=== PATIENT | male | born 1995 | race African-American/Black ===

== ENCOUNTER 2021-03-05 09:58 | Inpatient (IN) | payer OTHER ==
[~2021-03-05] VITALS: Ht 172.7 cm; Wt 69.0 kg
[2021-03-05] MEDS ORDERED: SODIUM CHLORIDE 0.9% 1,000 ML IV ONE ×2 (10:15)
[2021-03-05] MEDS ORDERED: cefTRIAXone 1GM/50ML D5W 50 ML IV ONE (10:15)
[2021-03-05] MEDS ORDERED: MORPHINE SULFATE 4 MG/ML SYR/VIAL IV ONE (10:15)
[2021-03-05] MEDS ORDERED: ACETAMINOPHEN 325 MG TAB PO ONE (10:15)
[2021-03-05 10:30] LABS: Basophils # (auto) 0 10 ^3/uL (0-0.2); Basophils % (auto) 0.6 % (0.0-2.0); Eosinophils # (auto) 0 10 ^3/uL (0-0.8); Hematocrit 44.5 % (41.0-53.0); Hemoglobin 15.4 g/dL (13.5-17.5); Lymphocytes # (auto) 1.6 10 ^3/uL (0.4-5.4); Lymphocytes % (auto) 21.8 % (10.0-50.0); Mean Corpuscular Hemoglobin 32.6 pg (28.0-32.0); Mean Corpuscular Hgb Conc. 34.7 g/dL (32.0-36.0); Mean Corpuscular Volume 93.8 fL (80.0-100.0); Monocytes # (auto) 0.8 10 ^3/uL (0-1.3); Monocytes % (auto) 10.9 % (0.0-12.0); Neutrophils # (auto) 4.8 10 ^3/uL (1.6-8.6); Neutrophils % (auto) 66.7 % (37.0-80.0); Nucleated Red Blood Cells % 0.1 %; Platelet Count (auto) 150 10^3/uL (140-450); Red Blood Cells 4.74 10^6/uL (4.5-5.90); Red Cell Distribution Width 13.9 % (11.8-14.3); White Blood Cell 7.2 10^3/uL (4.4-10.8)
[2021-03-05] MEDS: ONDANSETRON HCL 4 MG/2 ML VIAL IV ONE ×2 (10:31→17:07)
[2021-03-05 10:48] LABS: Albumin 4.3 g/dL (3.4-5.0); Calcium 9.4 mg/dL (8.5-10.1); Potassium 3.5 mmol/L (3.5-5.1)
[2021-03-05 10:51] LABS: BUN/Creatinine Ratio 9.7; Bilirubin, Total 0.8 mg/dL (0.2-1.0); Total Protein 8.8 g/dL (6.4-8.2)
[2021-03-05 10:56] LABS: Lactic Acid w/Reflex 2.1 mmol/L (0.4-2.0)
[2021-03-05 11:33] LABS: Urine Bacteria NONE SEEN /hpf (None Seen); Urine Blood TRACE /uL (Negative); Urine Specific Gravity 1.024 (1.001-1.035); Urine WBC 1 /hpf (0 - 3)
[2021-03-05 12:09] LABS: Alcohol, Urine < 3.0 mg/dL (0-10); Amphetamine Screen, Urine NEGATIVE (NEGATIVE); Barbiturate Scree,Urine NEGATIVE (NEGATIVE); Benzodiazephine Screen, Urine NEGATIVE (NEGATIVE); Cannabinoid Screen, Urine POSITIVE (NEGATIVE); Cocaine Screen, Urine NEGATIVE (NEGATIVE)
[2021-03-05] MEDS ORDERED: metroNIDAZOLE 500MG/100ML 100 ML IV ONE (12:15)
[2021-03-05 12:16] LABS: Opiate Scree,Urine NEGATIVE (NEGATIVE); Phencyclidine Screen, Urine NEGATIVE (NEGATIVE)
[2021-03-05] MEDS ORDERED: HYDROcodone-ACET 5/325MG TAB PO PRN (12:45)
[2021-03-05] MEDS ORDERED: ACETAMINOPHEN 500 MG TAB PO PRN (12:45)
[2021-03-05] MEDS: metroNIDAZOLE 500MG/100ML 100 ML IV SCH ×2 (12:52→22:28)
[2021-03-05] MEDS: D5W/SOD CHLO 0.9% 1,000 ML IV SCH (12:56)
[2021-03-05] MEDS: ONDANSETRON HCL 4 MG/2 ML VIAL IV PRN (13:40)
[2021-03-05] MEDS: ACETAMINOPHEN 325 MG TAB PO PRN (13:50)
[2021-03-05] MEDS ORDERED: IBUPROFEN 400 MG TAB PO ONE (17:00)
[2021-03-05 18:40] VITALS: BP 134/72
[2021-03-05 22:28] VITALS: BP 121/70
[2021-03-06] MEDS: ONDANSETRON HCL 4 MG/2 ML VIAL IV PRN ×3 (00:37→18:26)
[2021-03-06] MEDS: MORPHINE SULF INJ 2 MG/ML SYRINGE 1ML IV PRN ×2 (03:59→20:34)
[2021-03-06] MEDS: ACETAMINOPHEN 325 MG TAB PO PRN ×3 (04:10→22:25)
[2021-03-06] MEDS: D5W/SOD CHLO 0.9% 1,000 ML IV SCH ×3 (04:13→12:34)
[2021-03-06 05:00] VITALS: BP 111/63
[2021-03-06] MEDS: metroNIDAZOLE 500MG/100ML 100 ML IV SCH ×3 (05:49→21:35)
[2021-03-06] MEDS: cefTRIAXone 1GM/50ML D5W 50 ML IV SCH (08:19)
[2021-03-06 08:57] VITALS: BP 121/73
[2021-03-06] MEDS: ESOMEPRAZOLE 40 MG/5ml VIAL INJ IV SCH (09:41)
[2021-03-06 12:41] VITALS: BP 119/74
[2021-03-06] MEDS ORDERED: FOLIC ACID 1 MG in D5W 5% 50 ML INJ ONE (13:00)
[2021-03-06] MEDS ORDERED: THIAMINE 100mg/ml INJ (200mg/2ml VIAL) IV ONE (13:00)
[2021-03-06] MEDS ORDERED: chlordiazePOXIDE HCL 5 MG CAP PO PRN (13:00)
[2021-03-06 16:37] VITALS: BP 137/89
[2021-03-06 22:00] VITALS: BP 130/74
[2021-03-07] MEDS: D5W/SOD CHLO 0.9% 1,000 ML IV SCH ×3 (00:34→07:36)
[2021-03-07] MEDS: ONDANSETRON HCL 4 MG/2 ML VIAL IV PRN (00:34)
[2021-03-07 05:00] VITALS: BP 143/79
[2021-03-07] MEDS: metroNIDAZOLE 500MG/100ML 100 ML IV SCH (05:50)
[2021-03-07 08:00] VITALS: BP 131/73
[2021-03-07] MEDS: cefTRIAXone 1GM/50ML D5W 50 ML IV SCH (09:45)
[2021-03-07] MEDS: ESOMEPRAZOLE 40 MG/5ml VIAL INJ IV SCH (09:45)
[2021-03-07] MEDS ORDERED: METR500T PO (09:49)
[2021-03-07] MEDS ORDERED: LEVO-28 PO (09:49)
[2021-03-07] MEDS ORDERED: MULT-1018 PO (09:49)
[2021-03-07] MEDS ORDERED: FOLIC ACID 1 MG in D5W 5% 50 ML INJ SCH (10:00)
[2021-03-07] MEDS ORDERED: THIAMINE 100mg/ml INJ (200mg/2ml VIAL) IV SCH (10:00)
== END 2021-03-07 13:50 | disposition home or self-care (01) | DRG 249 ==
LOC: ER 09:58 → OVERFLOW 12:41 → ER 17:25 → TELE-CENTR 17:59 → CENTRAL 18:02
PROVIDERS: ADMIT Nurse Practitioner Acute Care; ATTEND Internal Medicine
DX: K52.9 Noninfective gastroenteritis and colitis, unspecified (principal); L03.116 Cellulitis of left lower limb; E86.0 Dehydration; Z20.822 Contact with and (suspected) exposure to COVID-19; F10.10 Alcohol abuse, uncomplicated; F12.10 Cannabis abuse, uncomplicated
CPT/HCPCS: 36415; 71045; 74177; 80053; 80307; 81001; 82270; 83036; 83605; 83690; 85025; 85048; 87040; 87045; 87426; 87427; 87493; 93971; 96361; 96365; 96367; 99291; G0378; J0696; J2405; J3490; J7042; J7060

== ENCOUNTER 2021-06-19 18:30 | Emergency (ER) | payer OTHER ==
[~2021-06-19] VITALS: Ht 172.7 cm; Wt 72.6 kg
[~2021-06-19 18:30] MED LIST: LEVO-28 PO; METR500T PO; MULT-1018 PO
[2021-06-19 18:34] VITALS: BP 107/74
== END 2021-06-19 22:45 | disposition left against medical advice (07) ==
LOC: ER 18:34
DX: M79.644 Pain in right finger(s) (principal); R22.31 Localized swelling, mass and lump, right upper limb; Z53.21 Procedure and treatment not carried out due to patient leaving prior to being seen by health care provider
CPT/HCPCS: 73130

== ENCOUNTER 2023-11-07 07:10 | Emergency (ER) | payer OTHER ==
[~2023-11-07] VITALS: Ht 172.7 cm; Wt 72.4 kg
[~2023-11-07 07:10] MED LIST changes: -LEVO-28 PO; +LEVO500T91 PO
[2023-11-07 08:02] LABS: Basophils # (auto) 0 10 ^3/uL (0-0.2); Basophils % (auto) 0.5 % (0.0-2.0); Eosinophils # (auto) 0 10 ^3/uL (0-0.8); Hematocrit 45.3 % (41.0-53.0); Hemoglobin 15.1 g/dL (13.5-17.5); Lymphocytes # (auto) 0.9 10 ^3/uL (0.4-5.4); Lymphocytes % (auto) 12.7 % (10.0-50.0); Mean Corpuscular Hemoglobin 31.9 pg (28.0-32.0); Mean Corpuscular Hgb Conc. 33.3 g/dL (32.0-36.0); Mean Corpuscular Volume 95.6 fL (80.0-100.0); Monocytes # (auto) 0.9 10 ^3/uL (0-1.3); Monocytes % (auto) 12.1 % (0.0-12.0); Neutrophils # (auto) 5.3 10 ^3/uL (1.6-8.6); Neutrophils % (auto) 74.7 % (37.0-80.0); Red Blood Cells 4.74 10^6/uL (4.5-5.90); Red Cell Distribution Width 14.5 % (11.8-14.3); White Blood Cell 7.1 10^3/uL (4.4-10.8)
[2023-11-07] MEDS ORDERED: HYDROcodone-ACET 10/325MG TAB PO ONE (08:15)
[2023-11-07 08:22] LABS: Alanine Aminotransferase 30 U/L (7-40); Albumin 5.5 g/dL (3.2-4.8); Alkaline Phosphatase 66 U/L (46-116); Anion Gap 7 (5-15); Aspartate Aminotransferase 26 U/L (13-40); BUN/Creatinine Ratio 7.5 (10.0-20.0); Bilirubin, Total 0.4 mg/dL (0.2-1.0); Blood Urea Nitrogen 8 mg/dL (9-23); Calcium 9.8 mg/dL (8.5-10.1); Carbon Dioxide 27 mmol/L (20-30); Chloride 102 mmol/L (98-107); Glucose 97 mg/dL (74-106); Potassium 4.3 mmol/L (3.5-5.1); Sodium 136 mmol/L (136-145)
[2023-11-07] MEDS ORDERED: HYDROcodone-ACET 10/325MG TAB ONE (08:35)
[2023-11-07] MEDS ORDERED: SODIUM CHLORIDE 0.9% 1,000 ML IV ONE (08:45)
[2023-11-07] MEDS ORDERED: metroNIDAZOLE 500MG/100ML 100 ML IV ONE ×2 (08:45→09:21)
[2023-11-07] MEDS ORDERED: cefTRIAXone 1GM/50ML D5W 50 ML IV ONE ×2 (08:45→09:21)
[2023-11-07 10:02] LABS: Urine Bacteria FEW /hpf (None Seen); Urine Blood Negative /uL (Negative); Urine Clarity HAZY (Clear); Urine Color Yellow (Yellow); Urine Mucus FEW (None Seen); Urine Protein, UAD 2+ (Negative); Urine Specific Gravity 1.037 (1.001-1.035); Urine Urobilinogen Normal (Negative); Urine WBC 3 /hpf (0 - 3); Urine pH 5.5 (5.0-8.0)
[2023-11-07 10:30] LABS: Amphetamine Screen, Urine Neg (NEGATIVE); Barbiturate Scree,Urine Neg (NEGATIVE); Benzodiazephine Screen, Urine Neg (NEGATIVE); Cannabinoid Screen, Urine Pos (NEGATIVE); Cocaine Screen, Urine Neg (NEGATIVE); Opiate Scree,Urine Neg (NEGATIVE); Phencyclidine Screen, Urine Neg (NEGATIVE)
[2023-11-07 10:55] VITALS: BP 155/80; PULSE 87; RESP 18; TEMP 98; O2SAT 99
== END 2023-11-07 10:56 | disposition home or self-care (01) ==
LOC: ER 07:10
DX: K52.9 Noninfective gastroenteritis and colitis, unspecified (principal); R05.9 Cough, unspecified; R51.9 Headache, unspecified; Z79.2 Long term (current) use of antibiotics; Z79.899 Other long term (current) drug therapy
CPT/HCPCS: 36415; 74176; 80053; 80307; 81001; 83690; 85025; 96361; 96365; 96375; 99285; J0696; J3490; J7030